=== PATIENT | male | born 1940 | race Caucasian/White ===

== ENCOUNTER 2018-03-31 23:16 | Emergency (ER) | payer MEDICARE ==
[~2018-03-31] VITALS: Ht 175.3 cm; Wt 72.6 kg
--- NOTE | 2018-03-31 23:30 | NUR ---
Pt. ambulated into ED w/ c/o dizziness x 12 hours, ambulated w/ steady gait, A/Ox4, denies CP/NAZARIO/F/C/N/V, accompanied by ,
[2018-03-31] MEDS ORDERED: PIOGLITAZONE HCL 30 MG TABLET (23:32)
[2018-03-31] MEDS ORDERED: ROSUVASTATIN CALCIUM 20 MG TAB (23:32)
[2018-03-31] MEDS ORDERED: FINASTERIDE 1 MG TABLET (23:32)
[2018-03-31] MEDS ORDERED: ASPI81TA31 PO (23:32)
[2018-03-31] MEDS ORDERED: METFORMIN HCL 500 MG TABLET (23:32)
[2018-04-01] MEDS ORDERED: ASPIRIN 81 MG TAB.CHEW ONE (00:14)
[2018-04-01] MEDS ORDERED: ASPIRIN 81 MG TAB.CHEW PO ONE (00:15)
[2018-04-01 00:21] LABS: BASOPHILS # (AUTO) 0.1 K/uL (0.0-8.0); BASOPHILS % (AUTO) 0.9 % (0.0-2.0); EOSINOPHILS # (AUTO) 0.5 K/uL (0.0-0.7); EOSINOPHILS % (AUTO) 7.6 % (0.0-7.0); HEMATOCRIT 31.5 % (36.7-47.1); HEMOGLOBIN 10.4 g/dL (12.5-16.3); LYMPHOCYTES # (AUTO) 0.4 K/uL (20.0-40.0); LYMPHOCYTES % (AUTO) 6.5 % (20.5-51.5); MEAN CORPUSCULAR HEMOGLOBIN 27.1 uug (23.8-33.4); MEAN CORPUSCULAR HGB CONC 33 g/dL (32.5-36.3); MEAN CORPUSCULAR VOLUME 82.4 fL (73.0-96.2); MONOCYTES # (AUTO) 0.8 K/uL (2.0-10.0); MONOCYTES % (AUTO) 12.3 % (0.0-11.0); NEUTROPHILS % (AUTO) 72.7 % (38.5-71.5); PLATELET COUNT (AUTO) 226 K/uL (152-348); RED BLOOD CELL COUNT(AUTO) 3.82 MIL/uL (4.06-5.63); WHITE BLOOD COUNT (AUTO) 6.9 K/uL (3.6-10.2)
[2018-04-01] MEDS ORDERED: MECLIZINE HCL 25 MG TABLET PO ONE (00:30)
[2018-04-01] MEDS ORDERED: MECLIZINE HCL 25 MG TABLET ONE (00:30)
[2018-04-01 00:42] LABS: CARBON DIOXIDE 28 mmol/L (21-32); CHLORIDE 107 mmol/L (98-107); CREATININE 1.3 mg/dL (0.6-1.3); GLUCOSE 185 mg/dL (74-106); UREA NITROGEN, BLOOD 23 mg/dL (7-18)
[2018-04-01 00:48] LABS: ALANINE AMINOTRANSFERASE 13 U/L (16-63); ALKALINE PHOSPHATASE 49 U/L (50-136); ASPARTATE AMINOTRANSFERASE 13 U/L (15-37); BILIRUBIN,DIRECT 0.1 mg/dL (0.0-0.2); BILIRUBIN,TOTAL 0.2 mg/dL (0.2-1.0)
--- NOTE | 2018-04-01 01:08 | NUR ---
Patient discharged to home in stable conditon. Written and verbal after care instructions given. Patient verbalizes understanding of instructions. Pt. d/c w/ prescription per MD order, d/c papers signed, all belongings w/ pt., ambulated off unit w/ steady gait, left in private vehicle, accompanied by , JOSEFINA
== END 2018-04-01 01:11 | disposition home or self-care (01) ==
LOC: ER 23:17
DX: D64.9 Anemia, unspecified (principal); I45.10 Unspecified right bundle-branch block; E11.9 Type 2 diabetes mellitus without complications; Z79.82 Long term (current) use of aspirin; Z79.899 Other long term (current) drug therapy
CPT/HCPCS: 36415; 70030-TC; 85025; 85730; 93005; A4663; J8597